=== PATIENT | female | born 1995 | race Caucasian/White ===

== ENCOUNTER 2019-01-24 13:18 | Emergency (ER) | payer OTHER ==
[~2019-01-24] VITALS: Ht 154.9 cm; Wt 68.0 kg
[2019-01-24 13:46] VITALS: BP 131/82
[2019-01-24 14:32] LABS: INFLUENZA A PATIENT POSITIVE (NEGATIVE); INFLUENZA B PATIENT NEGATIVE (NEGATIVE)
[2019-01-24] MEDS ORDERED: ONDA4TAB12 PO (14:45)
[2019-01-24] MEDS ORDERED: OSEL75CA PO (14:45)
[2019-01-24] MEDS ORDERED: BENZ100C PO (14:45)
[2019-01-24] MEDS ORDERED: ACETAMINOPHEN 325 MG TABLET. PO ONE (14:45)
--- NOTE | 2019-01-24 14:45 | PHYS DOC ---
Past Medical History Past Medical History: No Pertinent History Past Surgical History: Alcohol Use: None Drug Use: None Adult General Chief Complaint Chief Complaint: FLU SYMPTOM HPI HPI Patient is a 23 year old female who presents with 2 days of cough, runny nose, nausea, vomiting, body aches, fever. Review of Systems Review of Systems Constitutional: fever or chills [] Eyes: Denies change in visual acuity, redness, or eye pain [] HENT: nasal congestion or sore throat [] Respiratory: cough or denies shortness of breath [] Cardiovascular: No additional information not addressed in HPI [] GI: Denies abdominal pain, nausea, vomiting, bloody stools or diarrhea [] : Denies dysuria or hematuria [] Musculoskeletal: Generalized body aches. Denies back pain or joint pain [] Integument: Denies rash or skin lesions [] Neurologic: Denies headache, focal weakness or sensory changes [] Endocrine: Denies polyuria or polydipsia [] All other systems were reviewed and found to be within normal limits, except as documented in this note. Allergies Allergies Allergies Coded Allergies Type Severity Reaction Last Updated Verified No Known Drug Allergies 01/24/19 No Physical Exam Physical Exam Constitutional: Well developed, well nourished, no acute distress, non-toxic appearance. [] HENT: Normocephalic, atraumatic, bilateral external ears normal, oropharynx moist, no oral exudates, nose normal. Clear postnasal drip.[] Eyes: PERRLA, EOMI, conjunctiva normal, no discharge. [] Neck: Normal range of motion, no tenderness, supple, no stridor. [] Cardiovascular:Heart rate regular rhythm, no murmur [] Lungs & Thorax: Bilateral breath sounds clear to auscultation [] Abdomen: Bowel sounds normal, soft, no tenderness, no masses, no pulsatile masses. [] Skin: Warm, dry, no erythema, no rash. [] Back: No tenderness, no CVA tenderness. [] Extremities: No tenderness, no cyanosis, no clubbing, ROM intact, no edema. [] Neurologic: Alert and oriented X 3, normal motor function, normal sensory function, no focal deficits noted. [] Psychologic: Affect normal, judgement normal, mood normal. [] Current Patient Data Vital Signs Vital Signs Date Time Temp Pulse Resp B/P (MAP) Pulse Ox O2 Delivery O2 Flow Rate FiO2 01/24/19 13:46 103.1 126 18 131/82 (98) 98 Room Air 103.1 Lab Values Laboratory Tests Test 01/24/19 13:45 Influenza Type A Antigen Positive (NEGATIVE) Influenza Type B Antigen Negative (NEGATIVE) EKG EKG [] Radiology/Procedures Radiology/Procedures [] Course & Med Decision Making Course & Med Decision Making Patient is a 23 year old female who presents with 2 days of cough, runny nose, nausea, vomiting, body aches, fever. Alert and oriented. Speaks in full clear sentences. Skin is pink warm and dry. Mucous membranes are moist. Patient has clear rhinorrhea and postnasal drip. Throat is pink and without exudates or swelling. Lungs are clear to auscultation all lobes. Heart rate regular without murmur. Patient denies shortness of breath or chest pain. Patient denies coughing up any mucus. Abdomen is soft and nontender. Patient states she took ibuprofen before she came to the ED at noon. Patient's heart rate upon arrival is 124 and temp is 103.1. She'll be given a prescription for Tamiflu and to continue taking Tylenol or ibuprofen for fever. I'll also give her prescription for nausea medicine and cough medication. Patient is to follow-up with her primary care provider drink plenty of fluids. Dragon Disclaimer Dragon Disclaimer This electronic medical record was generated, in whole or in part, using a voice recognition dictation system. Departure Departure Impression: Primary Impression: Influenza A Disposition: 01 HOME, SELF-CARE Condition: STABLE Referrals: TOMAS VELA MD (PCP) Patient Instructions: Influenza, Adult Additional Instructions: Follow-up with primary care provider. Take medications as prescribed. Drink plenty of fluids. Take Tylenol or ibuprofen for pain and fever. Scripts Ondansetron (ONDANSETRON ODT) 4 Mg Tab.rapdis 1 TAB PO PRN Q6-8HRS, #20 TAB Prov: FARRUKH HARDIN APRN 01/24/19 Benzonatate (TESSALON PERLE) 100 Mg Capsule 1 CAP PO TID, #30 CAP Prov: FARRUKH HARDIN APRN 01/24/19 Oseltamivir Phosphate (TAMIFLU) 75 Mg Capsule 1 CAP PO BID for 5 Days, #10 CAP Prov: FARRUKH HARDIN APRN 01/24/19 FARRUKH HARDIN APRN Jan 24, 2019 14:45
[2019-01-24] MEDS ORDERED: IV NORMAL SALINE 1000ML BAG 1,000 ML IV ONE (15:00)
[2019-01-24] MEDS ORDERED: IV NORMAL SALINE 500ML BAG 500 ML IV ONE (16:00)
== END 2019-01-24 16:49 | disposition home or self-care (01) ==
LOC: ER 13:18
DX: J10.1 Influenza due to other identified influenza virus with other respiratory manifestations (principal)
CPT/HCPCS: 87804; 96360; 96361; 99283; J7030; J7040

== ENCOUNTER 2019-09-10 20:29 | Emergency (ER) | payer OTHER ==
[~2019-09-10] VITALS: Ht 157.5 cm; Wt 79.5 kg
[~2019-09-10 20:29] MED LIST: BENZ100C PO; ONDA4TAB12 PO; OSEL75CA PO
[2019-09-10 21:00] VITALS: BP 139/74
[2019-09-10] MEDS ORDERED: diphenhydrAMINE HCL 25 MG CAPSULE PO ONE (21:00)
--- NOTE | 2019-09-10 21:07 | PHYS DOC ---
Past Medical History Past Medical History: No Pertinent History Past Surgical History: Alcohol Use: None Drug Use: None Adult General Chief Complaint Chief Complaint: ALLERGIC REACTION HPI HPI Patient is a 24 year old female who presents with complaining of allergic reaction. Patient states she developed itching and feeling causing her right side of face after eating avocado. Patient states she felt throat swelling and shortness of breath on her way to come to the hospital that improved at arrival to ER. Patient states she had an allergic reaction to vocal years ago but did not have any more problem with eating fresh avocado after that. Review of Systems Review of Systems Constitutional: Denies fever or chills [] Eyes: Denies change in visual acuity, redness, or eye pain [] HENT: Denies nasal congestion or sore throat [] Respiratory: Denies cough or shortness of breath [] Cardiovascular: No additional information not addressed in HPI [] GI: Denies abdominal pain, nausea, vomiting, bloody stools or diarrhea [] : Denies dysuria or hematuria [] Musculoskeletal: Denies back pain or joint pain [] Integument: Denies skin lesions , reports rash[] Neurologic: Denies headache, focal weakness or sensory changes [] Endocrine: Denies polyuria or polydipsia [] All other systems were reviewed and found to be within normal limits, except as documented in this note. Current Medications Current Medications Current Medications Medications (Trade) Dose Ordered Sig/Figueroa Start Time Stop Time Status Last Admin Dose Admin Diphenhydramine HCl (Benadryl) 25 mg 1X ONCE 09/10/19 21:00 09/10/19 21:01 DC 09/10/19 21:19 25 MG Allergies Allergies Allergies Coded Allergies Type Severity Reaction Last Updated Verified No Known Drug Allergies 01/24/19 No Physical Exam Physical Exam Constitutional: Well developed, well nourished, mild distress, non-toxic appearance. [] HENT: Normocephalic, atraumatic, bilateral external ears normal, oropharynx moist, no oral exudates, nose normal. [] Eyes: PERRLA, EOMI, conjunctiva normal, no discharge. [] Neck: Normal range of motion, no tenderness, supple, no stridor. [] Cardiovascular:Heart rate regular rhythm, no murmur [] Lungs & Thorax: Bilateral breath sounds clear to auscultation [] Skin: Warm, dry, no erythema, mild erythematous rash of face and neck[] Back: No tenderness, no CVA tenderness. [] Extremities: No tenderness, no cyanosis, no clubbing, ROM intact, no edema. [] Neurologic: Alert and oriented X 3, normal motor function, normal sensory function, no focal deficits noted. [] Psychologic: Affect normal, judgement normal, mood normal. [] Current Patient Data Vital Signs Vital Signs Date Time Temp Pulse Resp B/P (MAP) Pulse Ox O2 Delivery O2 Flow Rate FiO2 09/10/19 21:00 79 14 139/74 (95) 100 Room Air 09/10/19 20:35 98.2 98.2 Lab Values Laboratory Tests Test 09/10/19 20:45 POC Urine HCG, Qualitative Hcg negative (Negative) EKG EKG [] Radiology/Procedures Radiology/Procedures [] Course & Med Decision Making Course & Med Decision Making Evaluation of patient in ER showed 25-year-old female patient with allergic reaction to food and facial rash without edema of the uvula or tongue and ab normal breath or hypoxia. Patient treated with Benadryl in ER and felt better. Plan discharge patient home with diagnose of food allergy. Dragon Disclaimer Dragon Disclaimer This electronic medical record was generated, in whole or in part, using a voice recognition dictation system. Departure Departure Impression: Primary Impression: Allergic reaction to food Disposition: 01 HOME, SELF-CARE (at 2152) Condition: IMPROVED Referrals: TOMAS VELA MD (PCP) Patient Instructions: Food Allergy Additional Instructions: Drink plenty of liquids Follow-up with your primary care physician in 3-5 days Return to ER if not getting better Take [id number] Benadryl as needed for rash Problem Qualifiers Primary Impression: Allergic reaction to food Encounter type: initial encounter Qualified Codes: T78.1XXA - Other adverse food reactions, not elsewhere classified, initial encounter JR CHINO MD Sep 10, 2019 21:07
== END 2019-09-10 21:55 | disposition home or self-care (01) ==
LOC: ER 20:29
DX: R06.02 Shortness of breath (principal); L29.9 Pruritus, unspecified; T78.1XXA Other adverse food reactions, not elsewhere classified, initial encounter; Z98.890 Other specified postprocedural states; X58.XXXA Exposure to other specified factors, initial encounter
CPT/HCPCS: 81025; 99282; Q0163